=== PATIENT | male | born 1980 | race Caucasian/White ===

== ENCOUNTER 2020-12-19 10:59 | Outpatient (CLI) | payer OTHER, SELFPAY ==
[2020-12-19 12:06] LABS: SARS-CoV-2 RNA PCR Negative (Negative)
== END 2020-12-19 11:00 | disposition home or self-care (01) ==
LOC: CHSLAB 11:04
PROVIDERS: PCP Family Medicine; Visit Provider Family Medicine
DX: J00 Acute nasopharyngitis [common cold] (principal); Z20.822 Contact with and (suspected) exposure to COVID-19
CPT/HCPCS: C9803; U0003; U0005

== ENCOUNTER 2020-12-25 10:27 | Outpatient (CLI) | payer OTHER, SELFPAY ==
[2020-12-25 11:29] LABS: SARS-CoV-2 RNA PCR Negative (Negative)
== END 2020-12-25 10:28 | disposition home or self-care (01) ==
LOC: CHSLAB 10:29
PROVIDERS: PCP Family Medicine; Visit Provider Family Medicine
DX: J00 Acute nasopharyngitis [common cold] (principal); Z20.822 Contact with and (suspected) exposure to COVID-19
CPT/HCPCS: C9803; U0003; U0005

== ENCOUNTER 2021-06-04 15:59 | Outpatient (CLI) | payer OTHER, SELFPAY ==
[2021-06-04 17:39] LABS: Influenza A QL RT-PCR Negative (Negative); Influenza B QL RT-PCR Negative (Negative); SARS-CoV-2 RNA PCR Negative (Negative)
== END 2021-06-04 16:00 | disposition home or self-care (01) ==
LOC: CHSLAB 16:04
PROVIDERS: PCP Family Medicine; Visit Provider Family Medicine
DX: R43.0 Anosmia (principal); Z20.822 Contact with and (suspected) exposure to COVID-19
CPT/HCPCS: 87502; C9803; U0003; U0005

== ENCOUNTER 2022-02-08 20:43 | Emergency (ER) | payer OTHER, SELFPAY ==
--- NOTE | 2022-02-08 20:53 | ED.GENADULT ---
HPI - General Adult General Chief complaint: Medical Clearance Stated complaint: elevated BP History of Present Illness HPI narrative: Doc is a 41M with a history of DMII that presented to the ER with concerns of high sugar (over 500 at home) and he is out of diabetic meds. Related Data Home Medications Medication Instructions Recorded Confirmed albuterol sulfate 2.5 mg/3 mL 2.5 mg inhalation PRN PRN 02/08/22 02/08/22 (0.083 %) solution for nebulization Shortness Of Breath Or Wheezing albuterol sulfate 90 mcg/actuation 2 puff inhalation BID-TID 02/08/22 02/08/22 aerosol inhaler (ProAir HFA) empagliflozin 10 mg tablet 10 mg PO DAILY 02/08/22 02/08/22 (Jardiance) metformin 500 mg tablet 500 mg PO DAILY 02/08/22 02/08/22 sitagliptin 100 mg tablet (Januvia) 100 mg PO DAILY 02/08/22 02/08/22 Allergies Allergy/AdvReac Type Severity Reaction Status Date / Time No Known Allergies Allergy Verified 02/08/22 20:59 Review of Systems Review of Systems: All systems reviewed & are unremarkable except as noted in HPI and below Exam Const: General: healthy appearing, no acute distress and alert Nutritional Appearance: well nourished Orientation/consciousness: patient oriented x3 HENMT: Head: normal to inspection Ears: external ears normal General nose exam: Normal external nose present Eyes: Conjunctivae: conjunctivae normal Pupils: Equal, round and reactive pupils present EOM: EOMs intact bilaterally Neck: Neck: normal visual inspection Chest: Chest palpation & inspection: normal inspection of the chest Resp: Effort & Inspection: normal respiratory effort Auscultation: clear to auscultation bilaterally Cardio: Rate: regular rate Rhythm: regular rhythm GI: Inspection: non-distended GI Palp: Yes Soft to palpation and No Tenderness to palpation present (GI) Skin: General skin exam: normal color Rashes: no rashes Neuro: General: patient oriented x3 and moves all extremities Cranial nerves: Yes Nystagmus not present Extrem: Other: no deformity Psych: Mental Status: mental status grossly normal Affect: normal affect Course Course Emergency Course: glucose was 167. Continue metformin. Refilled Jardiance. Instructed to f/u with his PCP Vital Signs Vital signs: Vital Signs Temperature 98 F 02/08/22 21:06 Pulse Rate 80 02/08/22 21:06 Respiratory Rate 16 02/08/22 21:06 Blood Pressure 134/94 H 02/08/22 21:06 Pulse Oximetry 96 02/08/22 21:06 Oxygen Delivery Room Air 02/08/22 21:06 Temperature 98 F 02/08/22 21:32 Pulse Rate 72 02/08/22 21:32 Respiratory Rate 20 02/08/22 21:32 Blood Pressure 132/80 02/08/22 21:32 Pulse Oximetry 99 02/08/22 21:32 Oxygen Delivery Room Air 02/08/22 21:32 Medical Decision Making Vital Signs Vital Signs: Vital Signs Temperature 98 F 02/08/22 21:06 Pulse Rate 80 02/08/22 21:06 Respiratory Rate 16 02/08/22 21:06 Blood Pressure 134/94 H 02/08/22 21:06 Pulse Oximetry 96 02/08/22 21:06 Oxygen Delivery Room Air 02/08/22 21:06 Temperature 98 F 02/08/22 21:32 Pulse Rate 72 02/08/22 21:32 Respiratory Rate 20 02/08/22 21:32 Blood Pressure 132/80 02/08/22 21:32 Pulse Oximetry 99 02/08/22 21:32 Oxygen Delivery Room Air 02/08/22 21:32 Lab Data Result diagrams: 02/08/22 21:03 02/08/22 21:03 Labs: Lab Results 02/08/22 02/08/22 02/08/22 Range/Units 20:51 21:03 21:03 WBC 10.4 (4.8-10.8) K/mm3 RBC 5.39 (4.70-6.10) M/mm3 Hgb 15.9 (14.0-18.0) g/dL Hct 46.4 (40.0-54.0) % MCV 86.1 (78.0-102.0) fL MCH 29.5 (27.0-31.0) pg MCHC 34.3 (32.0-36.0) g/dL RDW 13.3 (11.6-14.4) % Plt Count 195 (150-420) K/mm3 MPV 11.1 H (8.7-11.0) fl Immature Gran % (Auto) 0.6 H (0.0-0.0) % Neut % (Auto) 62.8 (50.0-70.0) % Lymph % (Auto) 27.3 (18.0-42.0) % Gibson % (Auto) 7.1 (2.0-11.0) % Eos % (Auto) 1.7
[2022-02-08 21:06] VITALS: BP 134/94; PULSE 80; RESP 16; TEMP 36.6; O2SAT 96
[2022-02-08 21:06] LABS: Basophils Absolute Auto 0.05 K/mm3 (0.00-0.10); Basophils Percent Auto 0.5 % (0.0-1.0); Eosinophils Absolute Auto 0.18 K/mm3 (0.02-0.50); Eosinophils Percent Auto 1.7 % (1.0-6.0); Hematocrit 46.4 % (40.0-54.0); Hemoglobin 15.9 g/dL (14.0-18.0); Immature Granulocyte Absolute 0.06 K/mm3 (0.00-0.00); Immature Granulocyte Percent A 0.6 % (0.0-0.0); Lymphocytes Absolute Auto 2.85 K/mm3 (1.10-4.50); Lymphocytes Percent Auto 27.3 % (18.0-42.0); Mean Corpuscular HGB Conc 34.3 g/dL (32.0-36.0); Mean Corpuscular Hemoglobin 29.5 pg (27.0-31.0); Mean Corpuscular Volume 86.1 fL (78.0-102.0); Mean Platelet Volume 11.1 fl (8.7-11.0); Monocytes Absolute Auto 0.74 K/mm3 (0.10-0.90); Monocytes Percent Auto 7.1 % (2.0-11.0); Neutrophils Absolute Auto 6.6 K/mm3 (1.7-7.2); Neutrophils Percent Auto 62.8 % (50.0-70.0); Platelet Count Result 195 K/mm3 (150-420); Red Blood Count 5.39 M/mm3 (4.70-6.10); Red Cell Distribution Width 13.3 % (11.6-14.4); White Blood Count 10.4 K/mm3 (4.8-10.8)
[2022-02-08 21:08] LABS: Device ROOM AIR; HCO3 VBG 30.1 mEq/l (24.0-30.0); PO2 VBG 60.3 mmHg (35.0-45.0); pH VBG 7.47 (7.33-7.43)
[2022-02-08 21:21] LABS: Alanine Aminotransferase 17 U/L (16-63); Albumin Level 3.7 g/dL (3.4-5.0); Alkaline Phosphatase 107 U/L (46-116); Anion Gap 9 mmol/L (8-16); Aspartate Amino Transferase < 10 U/L (15-37); Bilirubin,Total 0.3 mg/dL (0.00-1.00); Blood Urea Nitrogen 15 mg/dL (7-18); Calcium 9.2 mg/dL (8.5-10.1); Carbon Dioxide 27 mmol/L (21-32); Chloride 100 mmol/L (98-108); Estimated CRCL calculation 111 ml/min; Estimated Glomerular Filt Rate > 60; Glucose 163 mg/dL (70-99); Osmolality Calculated 286 mOsm/kg (285-295); Potassium 3.9 mmol/L (3.5-5.1); Sodium 136 mmol/L (136-145); Total Protein 7.5 g/dL (6.4-8.2)
[2022-02-08 21:32] VITALS: BP 132/80; PULSE 72; RESP 20; TEMP 36.6; O2SAT 99
[2022-02-08 21:40] LABS: Glucose Point of Care 167 mg/dl (65-105)
== END 2022-02-08 21:33 | disposition home or self-care (01) ==
PROVIDERS: Emergency Provider Family Medicine; PCP Family Medicine
DX: E11.9 Type 2 diabetes mellitus without complications (principal)
CPT/HCPCS: 36415; 80053; 82803; 82948; 85025; 99281

== ENCOUNTER 2022-11-05 11:45 | Outpatient (CLI) | payer OTHER, SELFPAY ==
[2022-11-05 11:57] LABS: Basophils Absolute Auto 0.06 K/mm3 (0.00-0.10); Basophils Percent Auto 0.7 % (0.0-1.0); Eosinophils Absolute Auto 0.12 K/mm3 (0.02-0.50); Eosinophils Percent Auto 1.3 % (1.0-6.0); Hematocrit 48.5 % (40.0-54.0); Hemoglobin 15.9 g/dL (14.0-18.0); Immature Granulocyte Absolute 0.04 K/mm3 (0.00-0.00); Immature Granulocyte Percent A 0.4 % (0.0-0.0); Lymphocytes Percent Auto 22.9 % (18.0-42.0); Mean Corpuscular HGB Conc 32.8 g/dL (32.0-36.0); Mean Corpuscular Hemoglobin 28.3 pg (27.0-31.0); Mean Corpuscular Volume 86.5 fL (78.0-102.0); Monocytes Absolute Auto 0.62 K/mm3 (0.10-0.90); Monocytes Percent Auto 6.7 % (2.0-11.0); Neutrophils Absolute Auto 6.3 K/mm3 (1.7-7.2); Platelet Count Result 163 K/mm3 (150-420); Red Blood Count 5.61 M/mm3 (4.70-6.10); Red Cell Distribution Width 14.6 % (11.6-14.4); White Blood Count 9.2 K/mm3 (4.8-10.8)
[2022-11-05 12:08] LABS: Hemoglobin A1C 6.5 % (<5.7)
[2022-11-05 12:29] LABS: Anion Gap 12 mmol/L (8-16); Blood Urea Nitrogen 19 mg/dL (7-18); Calcium 8.8 mg/dL (8.5-10.1); Carbon Dioxide 25 mmol/L (21-32); Chloride 106 mmol/L (98-108); Estimated Glomerular Filt Rate > 60; Glucose 158 mg/dL (70-99); Osmolality Calculated 301 mOsm/kg (285-295); Sodium 143 mmol/L (136-145); Uric Acid 6.4 mg/dL (3.5-7.2)
== END 2022-11-05 11:46 | disposition home or self-care (01) ==
LOC: CHSLAB 11:47
PROVIDERS: PCP Family Medicine; Visit Provider Family Medicine
DX: E11.21 Type 2 diabetes mellitus with diabetic nephropathy (principal); M10.1 Lead-induced gout; N18.9 Chronic kidney disease, unspecified
CPT/HCPCS: 36415; 80048; 83036; 84550; 85025